=== PATIENT | female | born 1950 | race Caucasian/White ===

== ENCOUNTER → 2016-08-11 | Outpatient (CLI) | payer MEDICARE, BC | LOC: RAD 13:22 | PROVIDERS: ATTEND Family Medicine | DX: Z12.31 Encounter for screening mammogram for malignant neoplasm of breast (principal) ==

== ENCOUNTER → 2016-08-23 | Outpatient (CLI) | payer MEDICARE, BC ==
[2016-08-23 09:20] LABS: MEAN CORPUSCULAR HEMOGLOBIN 31.3 PG (26.0-34.0); MEAN CORPUSCULAR HGB CONC 33.8 g/dL (31.0-37.0); MEAN PLATELET VOLUME 8.6 FL (6.0-9.5); WHITE BLOOD COUNT 3.65 10^3uL (4.0-11.0)
[2016-08-23 09:50] LABS: ANION GAP 13.2 MEQ/L (3-15)
== END ==
LOC: LAB 08:50
PROVIDERS: ATTEND Family Medicine
DX: Z00.00 Encounter for general adult medical examination without abnormal findings (principal); Z13.6 Encounter for screening for cardiovascular disorders; R73.01 Impaired fasting glucose; M17.9 Osteoarthritis of knee, unspecified
CPT/HCPCS: 36415; 80048; 80061; 83036; 85027

== ENCOUNTER 2016-08-25 09:34 | Emergency (ER) | payer MEDICARE, BC ==
[~2016-08-25] VITALS: Ht 165.1 cm; Wt 72.0 kg
[2016-08-25] MEDS ORDERED: ALBUTEROL/IPRATROPIUM 3MG-0.5MG/3ML (DUONEB) NEB VIAL INH ONE (09:45)
[2016-08-25] MEDS ORDERED: methylPREDNISolone 125 MG (Solu-MEDROL) VIAL IV ONE (09:45)
[2016-08-25] MEDS ORDERED: LORazepam 2 MG/ML (ATIVAN) 1 ML VIAL IV ONE (09:45)
[2016-08-25] MEDS ORDERED: methylPREDNISolone 125 MG (Solu-MEDROL) VIAL IM ONE (09:45)
[2016-08-25] MEDS ORDERED: SODIUM CHLORIDE FLUSH 10 ML SYR IV PRN (10:00)
[2016-08-25] MEDS: SODIUM CHLORIDE FLUSH 3 ML SYR IV PRN ×4 (10:10→10:17)
[2016-08-25] MEDS ORDERED: TETRACAINE 0.5% OPHTHALMIC SOLUTION 4 ML BTL ONE (10:22)
[2016-08-25] MEDS ORDERED: LACTATED RINGERS 1,000 ML IV ONE (10:27)
--- NOTE | 2016-08-25 10:30 | NUR ---
LACTATED RINGERS (1000 ML) USED FOR OS IRRIGATION PER DOCTOR'S ORDER.
[2016-08-25] MEDS ORDERED: LACTATED RINGERS 1,000 ML IV SCH (10:35)
[2016-08-25 23:53] VITALS: BP 115/71
== END 2016-08-25 11:22 | disposition home or self-care (01) ==
LOC: EDUNIT# 09:34 → ED 09:35
DX: Z77.098 Contact with and (suspected) exposure to other hazardous, chiefly nonmedicinal, chemicals (principal)
CPT/HCPCS: 94640; 96374; 96375; 99285; J2060; J2930; J7120; 96365; 99282